=== PATIENT | male | born 1955 | race Hispanic/Latino ===

== ENCOUNTER 2016-07-06 10:31 | Outpatient (CLI) | payer OTHER ==
[2016-07-06 11:27] LABS: Anion Gap 14 mmol/L; BUN/Creatinine Ratio 16.25; Blood Urea Nitrogen 13 mg/dL (9-20); Calcium 8.9 mg/dL (8.4-10.2); Carbon Dioxide 27 mmol/L (22-30); Chloride 105.6 mmol/L (98-107); Glucose 117 mg/dL (75-100); Potassium 4.2 mmol/L (3.6-5.0); Sodium 142 mmol/L (137-145)
[2016-07-06] MEDS ORDERED: NACL ONE (11:38)
--- NOTE | 2016-07-06 12:21 | Cat Scan Report ---
CTA CHEST INDICATION: Aortic aneurysm. COMPARISON: None similar at this institution. FINDINGS: Chest CTA performed following intravenous administration of 100 cc of Omnipaque 350. Rotational MIP's also obtained. Top normal heart size. No effusions. Aneurysmal ascending aorta measures 4.3 cm AP, axial image 93, series 2, though attains a normal caliber at the arch. No aortic dissection or suspicious pulmonary arterial filling defects. Prosthetic aortic valve. Slight atherosclerotic calcifications. No size significant adenopathy. Normal airway. Unremarkable thyroid. Slight left lower lung atelectasis or scarring with minimally elevated left hemidiaphragm. Images through included upper abdomen reveal no significant abnormality. Sternotomy wires. Mild multilevel spinal degenerative changes. CONCLUSION: No acute CT abnormality with aneurysmal ascending aorta and prosthetic aortic valve noted, as described. Please correlate. Thank you for the opportunity to participate in this patient's care.
== END 2016-07-06 10:32 | disposition home or self-care (01) ==
LOC: CT 10:31
PROVIDERS: ATTEND Internal Medicine
DX: I77.810 Thoracic aortic ectasia (principal); I70.0 Atherosclerosis of aorta; J98.11 Atelectasis; J98.6 Disorders of diaphragm; M47.899 Other spondylosis, site unspecified; Z95.2 Presence of prosthetic heart valve; Z98.890 Other specified postprocedural states
CPT/HCPCS: 36415; 71275; 80048; Q9967